=== PATIENT | male | born 1975 | race Caucasian/White ===

== ENCOUNTER → 2019-08-08 07:47 | Outpatient (CLI) | payer OTHER, MEDICAID, SELFPAY ==
--- NOTE | 2019-08-08 10:27 | P.PCN_ITS ---
Cardiac Stress Test Report Referral & Results Date Patient Seen: 08/08/19 Time Patient Seen: 10:27 Requesting provider: Jonelle Encarnacion Indication: Abnormal ECG Rest ECG: Supraventricular bigeminy with brief (4-5 beats) runs of SVT Procedure Note: Today following both written and verbal informed consent, the patient was exercised according to a standard [facility] protocol. The patient exercised for a total of 10 minutes 37 seconds achieving a maximum heart rate of 170 for. Patient's maximum systolic blood pressure was 162. This was an estima burt 12.8 MET's. There are no ST-T segment changes Functional aerobic impairment rates about 0 on the sedentary scale Patient's supraventricular dysrhythmia rapidly disappeared as patient's heart ra te increased with activity and no other dysrhythmias were identified Impression: No evidence of ischemia Average exercise capacity Supraventricular dysrhythmia as above Please note: Actual ECG tracings can be found in the PACS system.
== END ==
PROVIDERS: PCP Family Medicine; Visit Provider Family Medicine
DX: R94.31 Abnormal electrocardiogram [ECG] [EKG] (principal); I47.1 Supraventricular tachycardia
CPT/HCPCS: 93016; 93017; 93018